=== PATIENT | female | born 1940 | race Caucasian/White ===

== ENCOUNTER 2017-09-11 06:53 | Outpatient (CLI) | payer MEDICARE, OTHER ==
--- NOTE | ~2017-09-11 | HEMODYNAMI ---
PATIENT:HERNAN OSBORNE MEDICAL RECORD: [id number] : 40 LOCATION:[facility] ADMISSION DATE: 09/11/17 Generatedon:09/11/201710:18 Patient name: HERNAN OSBORNE Patient #: [id number] SSN: : 1940 Date of study: 09/11/2017 Page: Of Hemodynamic Procedure Report Patient Data Patient Demographics Procedure consent was obtained First Name: HERNAN Gender: Female Last Name: DYLON : 1940 Patient #: [id number] Age: 77 year(s) Race: Unknown Additional ID: [id number] Contact details [address]: [address] [place] [address] [address] State: [place] City: [place] Zip code: [address] Admission Admission Data Admission Date: 09/11/2017 Admission Time: 6:53 Procedure Procedure Types Cath Procedure Peripheral Cath Diagnostic Procedure Miscellaneous PARACENTESIS WITH GUIDE Procedure Description Procedure Date Procedure Date: 09/11/2017 Procedure Start Time: 9:55 Procedure Staff Name Function Carlos Fraga MD Performing Physician Ramandeep Carty RN Nurse Corinne Prater RT Scrub Louis Rocha RT Monitor Procedure Medications Medication Administration Route Dosage Fentanyl I.V. 50 mcg Fentanyl I.V. 50 mcg Hemodynamics Rest Heart Rate: 62 (bpm) Snapshots Pre Cath Intra NCS Post Cath Vital Signs Time Heart Resp SPO2 NIBP (mmHg) Rhythm Pain Sedation Rate (ipm) (%) Status Level (bpm) 9:30:05 61 5 82 133/46(60) NSR 0 (11) 10(A) , No pain 9:34:21 66 13 69 123/87(112) NSR 0 (11) 10(A) , No pain 9:39:20 13 86 Measuring NSR 0 (11) 10(A) , No pain 9:39:42 67 12 133/76(93) NSR 0 (11) 10(A) , No pain 9:43:52 65 29 103/61(99) NSR 0 (11) 10(A) , No pain 9:48:51 64 11 Measuring NSR 0 (11) 10(A) , No pain 9:50:03 62 12 139/51(110) NSR 0 (11) 10(A) , No pain 9:54:11 66 10 113/101(107) NSR 0 (11) 10(A) , No pain 9:58:31 62 16 97 122/59(89) NSR 0 (11) 10(A) , No pain 10:02:45 70 17 133/93(118) NSR 0 (11) 10(A) , No pain 10:07:11 63 11 128/59(103) NSR 0 (11) 10(A) , No pain 10:11:21 61 9 98/59(92) NSR 0 (11) 10(A) , No pain 10:16:20 70 15 Measuring NSR 0 (11) 10(A) , No pain 10:17:42 68 12 126/66(115) NSR 0 (11) 10(A) , No pain Medications Time Medication Route Dose Verified Delivered Reason Notes Effectivenes s by by 9:59:15 Fentanyl I.V. 50 Carlos Carty RN, MD 10:13:20 Fentanyl I.V. 50 Carlos Carty RN, MD Procedure Log Time Note 9:15:56 Louis Rocha RT (R) (CV) sent for patient. Start room use. 9:16:17 Time tracking: Regular hours 9:16:42 Plan of Care:Hemodynamics will remain stable., Cardiac rhythm will remain stable., Comfort level will be maintained., Respiratory function will remain adequate., Patient/ family verbilizes understanding of procedure., Procedure tolerated without complication., Recovers from procedure without complications.. 9:17:46 Patient arrived from Outpatients to IR. Patient remains on bed/stretcher for procedure. 9:18:16 Correct patient and procedure confirmed by team. 9:19:41 Signed procedure consent form obtained from guardian. 9:19:46 ECG and BP/O2 sat monitors applied to patient. 9:19:54 Pre-procedure instructions explained to patient. 9:20:00 Pre-op teaching completed and patient verbalized understanding. 9:20:09 Family in waiting room. 9:20:15 Patient NPO since Midnight. 9:20:32 Is the patient allergic to Iodine/contrast media? No. 9:20:39 Is patient on blood thinner?No 9:20:43 Patient diabetic? No. 9:28:48 Vital chart was started 9:28:54 Baseline sample Acquired. 9:29:06 Rhythm: sinus rhythm 9:29:10 Full Disclosure recording started 9:29:34 Patient pain scale 1/10 no pain. 9:29:46 IV patent on arrival in right hand with 0.9% NaCl at [facility]. 9:29:52 Right abdomen area was prepped with chlora-prep and draped in sterile fashion 9::55 Alarms reviewed by R. N. 9:29:56 Sharps counted by scrub and verified by R.N. 9:53:49 Physician arrived 9:53:49 --------ALL STOP TIME OUT------ 9:53:50 Final Timeout: patient, procedure, and site verified with staff and physician. All members of the team are in agreement. 9:53:52 Right abdomen site verified by team. 9:54:04 Sedation plan: Local Anesthetic Fentanyl, Lidocaine 9:55:26 Procedure started. 9:55:31 Local anesthetic to Abdominal area with Lidocaine 1% by Carlos Fraga MD.INITIAL ACCESS ONLY 9:59:15 Fentanyl 50 mcg I.V. was administered by Ramandeep Carty RN; ; 10:03:20 [id number] 8FR CATH DRAIN TRAY opened to sterile field. 10:03:38 CONNECTING TUBE FOR DRAINAGE BAG opened to sterile field. 10:03:44 Tegaderm 4 x 4 opened to sterile field. 10:11:42 3.1 liters drained 10:13:20 Fentanyl 50 mcg I.V. was administered by Ramandeep Carty RN; ; 10:14:11 Procedure ended.(Physican Out) 10:14:53 Sharps counted by scrub and verified by R.N. 10:15:09 Insertion/operative site no bleeding no hematoma. 10:15:20 Post-op/insertion site Right Abdominal area dressed using a 4 x 4 and Tegaderm. 10:15:30 Post Abdominal area:stable 10:15:40 Post procedure instruction explained to patient.Patient verbalizes understanding. 10:15:41 Procedure and supply charges have been captured, reviewed, submitted and are correct. 10:17:58 Report given to Outpatients. 10:18:03 Patient transfered to Outpatients with Stretcher. 10:18:36 Vital chart was stopped Device Usage Item Name Manufacture Quantity Catalog Hospital Part Current Mini mal Lot# / Number Charge Number Stock Stock Serial# Code [id number] CareFusion 1 [id number] 5 8FR CATH DRAIN TRAY CONNECTING TUBE [place] 1 [id number] 5 FOR DRAINAGE Scientific BAG Tegaderm 4 x 4 3M 1 [id number] 5 Signature Audit [place] Stage Time Signature Unsigned Intra-Procedure 09/11/2017 Louis 10:18:29 AM Aj RT (R) (CV) Signatures Monitor : Louis Signature : Aj RT Date : Time : [id number] [place] [address]
[~2017-09-11 06:53] MED LIST: ACETAMINOPHEN325 MG PO; PRILOSEC20 MG PO; SYSTANE 0.3-0.4%5 ML EACH EYE; ZESTORETIC 20/21 TAB PO
[2017-09-11 08:21] LABS: BASOPHILS 0.4 % (0-2); EOSINOPHILS 4.4 % (0-7); HEMATOCRIT 38.6 % (36.0-48.0); HEMOGLOBIN 12.9 g/dL (12-16); IMMATURE GRANULOCYTES 0.4 % (0-5); LYMPHOCYTES 23.8 % (15-50); MCH 31.5 pg (26.0-34.0); MCHC 33.4 g/dL (31.0-37.0); MCV 94.4 fL (80.0-100.0); MEAN PLATELET VOLUME 10.5 fL (7.4-10.4); MONOCYTES 11.7 % (2-11); NEUTROPHILS 59.3 % (40-80); PLATELET COUNT 116 10x3/uL (130-400); RBC 4.09 10x6/uL (4.00-5.40); RDW 15.8 % (11.5-14.5); WBC 4.5 10x3/uL (4.8-10.8)
[2017-09-11] MEDS ORDERED: NADOLOL20 MG PO (08:23)
[2017-09-11] MEDS ORDERED: DURAGESIC1 PATCH .1 TRANSDERM (08:24)
[2017-09-11] MEDS ORDERED: XIFAXAN550 MG PO (08:25)
[2017-09-11] MEDS ORDERED: LACTULOSE 10 GM (08:26)
[2017-09-11] MEDS ORDERED: ATIVAN0.5 MG PO (08:27)
[2017-09-11] MEDS ORDERED: ALDACTONE50 MG PO ×2 (08:27→08:32)
[2017-09-11] MEDS ORDERED: FUROSEMIDE20 MG PO (08:28)
[2017-09-11] MEDS ORDERED: OXYCODONE HCL10 MG PO (08:29)
[2017-09-11] MEDS ORDERED: VITAMIN D5000 UNIT PO (08:29)
[2017-09-11 08:30] LABS: APTT 37.2 SECONDS (22.8-39.4); INR 1.43 (0.85-1.17); PROTIME 17.4 SECONDS (11.6-15.0)
[2017-09-11] MEDS ORDERED: MELATONIN 3 MG1 TAB PO (08:30)
[2017-09-11] MEDS ORDERED: KLOR-CON M2020 MEQ PO (08:30)
[2017-09-11] MEDS ORDERED: ULTRAM50 MG PO (08:31)
[2017-09-11] MEDS ORDERED: VITAMIN E400 UNI2 PO (08:31)
[2017-09-11 08:33] LABS: ANION GAP 7.2 mmol/L (8-16); CALCIUM 10.2 mg/dL (8.5-10.1); CARBON DIOXIDE 28.1 mmol/L (21.0-32.0); CREATININE - SERUM 0.8 mg/dL (0.6-1.3); POTASSIUM - SERUM 4.3 mmol/L (3.5-5.1)
[2017-09-11 08:40] VITALS: BMI 35.0
--- NOTE | 2017-09-11 18:06 | NUR ---
1045--ALL VITAL SIGNS CHARTED ON POST PROCEDURE VITAL SIGNS SHEET ON CHART. APURVA CARRERO 1330--IV DC'D, PT'S FAMILY ASSISSTING WITH DRESSING CHANGE. APURVA CARRERO 1400--DISCHARGE INSTRUCTIONS GIVEN, FAMILY VERBALIZES UNDERSTANDING. PT OFF UNIT VIA WC WITH FAMILY. APURVA CARRERO
== END 2017-09-11 14:00 | disposition home or self-care (01) ==
LOC: D.OPS 06:53 → D.CT 09:00 → D.OPS 14:00 → D.CT 09-13 13:00
PROVIDERS: Radiology Diagnostic Radiology
DX: R18.8 Other ascites (principal); Z01.812 Encounter for preprocedural laboratory examination